=== PATIENT | female | born 1965 | race Caucasian/White ===

== ENCOUNTER → 2021-07-24 | Outpatient (REF) | LOC: M LAB 13:38 | PROVIDERS: ATTEND Nurse Practitioner Adult Health | DX: Z00.00 Encounter for general adult medical examination without abnormal findings (principal) ==

== ENCOUNTER → 2021-10-30 | Outpatient (REF) | LOC: M LABSMTC 10:01 | PROVIDERS: ATTEND Family Medicine | DX: Z11.52 Encounter for screening for COVID-19 (principal) ==

== ENCOUNTER → 2023-02-19 | Outpatient (REF) | LOC: M EMP 09:03 | PROVIDERS: ATTEND Family Medicine | DX: Z11.52 Encounter for screening for COVID-19 (principal) ==

== ENCOUNTER 2023-03-12 08:46 | Emergency (ER) | payer OTHER, SELFPAY ==
[~2023-03-12] VITALS: Ht 154.9 cm; Wt 54.5 kg
[2023-03-12] MEDS ORDERED: PRED10TA2 (09:08)
[2023-03-12] MEDS ORDERED: CETI10CH PO (09:08)
[2023-03-12] MEDS ORDERED: methylPREDNISolone 125MG 2ML VIAL IV ONE (10:10)
[2023-03-12] MEDS ORDERED: FAMOTIDINE 20MG/2ML VIAL IVP ONE (10:10)
[2023-03-12] MEDS ORDERED: NS 1,000 ML IV ONE (10:10)
[2023-03-12 10:44] VITALS: TEMP 97.9
[2023-03-12 10:48] LABS: BASO % 0.2 % (0.0-1.0); EOS % 0.1 % (0.0-3.0); HEMATOCRIT 42.1 % (36.0-47.0); HEMOGLOBIN 13.5 g/dl (12.0-15.5); LYMPH # 1.5 10^3/uL (1.5-5.0); LYMPH % 10.6 % (24.0-44.0); MEAN CORPUSCULAR HGB CONC 32.1 g/dl (32.0-36.5); MEAN CORPUSCULAR VOLUME 87.2 fl (80.0-96.0); MONO # 0.4 10^3/uL (0.0-0.8); MONO % 2.5 % (2.0-8.0); NEUTROPHILS # 12.5 10^3/uL (1.5-8.5); NEUTROPHILS % 86.1 % (36.0-66.0); PLATELET COUNT, AUTOMATED 226 10^3/uL (150-450); RED BLOOD COUNT 4.83 10^6/uL (4.00-5.40); WHITE BLOOD COUNT 14.6 10^3/uL (4.0-10.0)
[2023-03-12 11:00] VITALS: BP 114/73; O2SAT 96
[2023-03-12 11:02] LABS: ERYTHROCYTE SEDIMENTATION RATE 27 mm/hr (0-30)
[2023-03-12 11:17] LABS: CK-MB VALUE MASS < 1.0 NG/ML (<3.6); INR 0.94; PROTHROMBIN TIME 12.8 SECONDS (12.5-14.5)
[2023-03-12 11:18] LABS: C REACTIVE PROTEIN QUANTITATIV < 0.40 MG/DL (<1.0); PARTIAL THROMBOPLASTIN TIME 24.4 SECONDS (24.8-34.2)
[2023-03-12 11:19] LABS: ALBUMIN 3.7 G/DL (3.2-5.2); ALKALINE PHOSPHATASE 91 U/L (46-116); ALT/SGPT 17 U/L (7.0-40); AST/SGOT 9 U/L (<34); BILIRUBIN,TOTAL 0.3 MG/DL (0.3-1.2); BLOOD UREA NITROGEN 14 MG/DL (9-23); CARBON DIOXIDE LEVEL 26 MMOL/L (20-31); CHLORIDE LEVEL 106 MMOL/L (98-107); GLOMERULAR FILTRATION RATE > 60.0 (>51); GLUCOSE, FASTING 103 MG/DL (60-100); POTASSIUM SERUM 4.2 MMOL/L (3.5-5.1); SODIUM LEVEL 139 MMOL/L (136-145); TOTAL PROTEIN 6.8 G/DL (5.7-8.2)
[2023-03-12 11:20] LABS: CPK CREATINE PHOSPHOKINASE 41 U/L (34-145); MB/CK RELATIVE INDEX 2.43 (< OR =4); THYROXINE (T4) 8.8 UG/DL (4.5-10.9)
[2023-03-12 11:21] LABS: FREE THYROXINE INDEX 3.4 % (1.3-4.8); T UPTAKE 38.9 % (22.5-37.0); THYROID STIMULATING HORMONE 0.292 uIU/ML (0.55-4.78)
[2023-03-12] MEDS ORDERED: FAMO20TA PO (12:27)
[2023-03-12] MEDS ORDERED: PRED10TA2 PO (12:27)
== END 2023-03-12 13:13 | disposition home or self-care (01) ==
LOC: M ED 08:46
DX: R53.83 Other fatigue (principal); R21 Rash and other nonspecific skin eruption; R42 Dizziness and giddiness; L72.0 Epidermal cyst; J45.909 Unspecified asthma, uncomplicated; F17.200 Nicotine dependence, unspecified, uncomplicated; Z79.51 Long term (current) use of inhaled steroids; Z79.899 Other long term (current) drug therapy
CPT/HCPCS: 70450; 80053; 82550; 82553; 84436; 84443; 84479; 84484; 85025; 85610; 85652; 85730; 86140; 93005; 96374; 96375; 99284; J2930; S0028

== ENCOUNTER 2023-03-26 10:26 | Emergency (ER) | payer OTHER, SELFPAY ==
[~2023-03-26] VITALS: Ht 157.5 cm; Wt 58.9 kg
[~2023-03-26 10:26] MED LIST: CETI10CH PO; FAMO20TA PO; PRED10TA2; PRED10TA2 PO
[2023-03-26] MEDS ORDERED: FAMOTIDINE 20MG/2ML VIAL IVP ONE (10:50)
[2023-03-26] MEDS ORDERED: dexAMETHasone 20MG/5ML VIAL IV ONE (11:25)
[2023-03-26] MEDS ORDERED: PRED10TA2 PO (13:26)
[2023-03-26 13:53] VITALS: BP 110/63; TEMP 100; O2SAT 98
== END 2023-03-26 13:56 | disposition home or self-care (01) ==
LOC: M ED 10:26 → EDBD 10:26 → M ED 13:56
DX: L50.1 Idiopathic urticaria (principal); J44.9 Chronic obstructive pulmonary disease, unspecified; J45.909 Unspecified asthma, uncomplicated; F17.200 Nicotine dependence, unspecified, uncomplicated
CPT/HCPCS: 96374; 96375; 99284; J1100; S0028

== ENCOUNTER → 2023-04-10 | Outpatient (CLI) | payer OTHER ==
[2023-04-10 08:10] LABS: BASO % 0.3 % (0.0-1.0); EOS # 0.1 10^3/uL (0.0-0.5); HEMATOCRIT 40.4 % (36.0-47.0); HEMOGLOBIN 12.9 g/dl (12.0-15.5); LYMPH # 2.2 10^3/uL (1.5-5.0); LYMPH % 21.7 % (24.0-44.0); MEAN CORPUSCULAR HEMOGLOBIN 27.9 pg (27.0-33.0); MEAN CORPUSCULAR HGB CONC 31.9 g/dl (32.0-36.5); MEAN CORPUSCULAR VOLUME 87.3 fl (80.0-96.0); MONO # 0.5 10^3/uL (0.0-0.8); MONO % 4.7 % (2.0-8.0); NEUTROPHILS # 7.1 10^3/uL (1.5-8.5); NEUTROPHILS % 71.3 % (36.0-66.0); PLATELET COUNT, AUTOMATED 214 10^3/uL (150-450); RED BLOOD COUNT 4.63 10^6/uL (4.00-5.40)
[2023-04-10 08:38] LABS: FREE T4 1.35 NG/DL (0.89-1.76); THYROID STIMULATING HORMONE 0.545 uIU/ML (0.55-4.78)
[2023-04-10 09:43] LABS: C REACTIVE PROTEIN QUANTITATIV 0.8 MG/DL (<1.0)
== END ==
LOC: M LAB 07:48
PROVIDERS: ATTEND Dermatology
DX: R21 Rash and other nonspecific skin eruption (principal)

== ENCOUNTER → 2023-05-07 | Outpatient (CLI) | payer OTHER ==
[2023-05-07 15:30] LABS: ALBUMIN 4.2 G/DL (3.2-5.2); ALKALINE PHOSPHATASE 74 U/L (46-116); ALT/SGPT 20 U/L (7.0-40); AST/SGOT 10 U/L (<34); BILIRUBIN,TOTAL 0.4 MG/DL (0.3-1.2); BLOOD UREA NITROGEN 10 MG/DL (9-23); CALCIUM LEVEL 9.8 MG/DL (8.5-10.1); CARBON DIOXIDE LEVEL 28 MMOL/L (20-31); CHLORIDE LEVEL 104 MMOL/L (98-107); CREATININE FOR GFR 0.67 MG/DL (0.55-1.30); GLOMERULAR FILTRATION RATE > 60.0 (>51); GLUCOSE, FASTING 108 MG/DL (60-100); POTASSIUM SERUM 4.2 MMOL/L (3.5-5.1); SODIUM LEVEL 140 MMOL/L (136-145); TOTAL PROTEIN 7.5 G/DL (5.7-8.2)
[2023-05-07 16:01] LABS: HIV 1&2 SCREEN NEGATIVE (NEGATIVE)
[2023-05-07 16:09] LABS: HEPATITIS C VIRUS ABY INDEX 0.12 INDEX (<0.8)
[2023-05-07 16:10] LABS: HEPATITIS B CORE ANTIBODY IGM NEGATIVE (NEGATIVE)
== END ==
LOC: M LAB 14:28
PROVIDERS: ATTEND Dermatology
DX: R21 Rash and other nonspecific skin eruption (principal)